=== PATIENT | female | born 1950 | race Caucasian/White ===

== ENCOUNTER → 2017-03-03 | Outpatient (CLI) | payer MEDICARE, BC ==
[~2017-03-03] MED LIST: ASPI-650 PO; CHOL-29 PO; GADOBUTROL 7.5 MMOL/7.5 ML PFS ONE; SIMV40TA3 PO; TURM500C7 PO
== END | disposition home or self-care (01) ==
LOC: CFH 13:36
PROVIDERS: ATTEND Nurse Practitioner Primary Care
DX: J34.89 Other specified disorders of nose and nasal sinuses (principal); I63.9 Cerebral infarction, unspecified
CPT/HCPCS: 70553; A9585